=== PATIENT | male | born 1955 | race Hispanic/Latino ===

== ENCOUNTER 2024-05-26 15:59 | Emergency (ER) | payer BC, OTHER ==
[~2024-05-26] VITALS: Ht 172.7 cm; Wt 93.0 kg
[~2024-05-26 15:59] MED LIST: ACET-66 PO; FISH1CAP27 PO; GLUC-172 PO; MULT-950 PO
[2024-05-26 16:02] VITALS: TEMP 97.8
--- NOTE | 2024-05-26 16:09 | NUR ---
PT JUST NOW PLACED IN MY ED BED 18
[2024-05-26] MEDS: LIDOCAINE HCL 1% 20 ML VIAL INJ SCH (16:34)
[2024-05-26] MEDS: CLINDAMYCIN IVPB 600MG/50ML 50 ML IV SCH (16:34)
--- NOTE | 2024-05-26 16:50 | NUR ---
WOUND CULTURE: ONCE WOUND WAS CLEANSED W/SALINE, LEOLA TILLMAN OBTAINED A GOOD CULTURE WITH MANAGEMENT CONSULTING. IT WAS LABELED AND SENT TO LAB
--- NOTE | 2024-05-26 16:55 | NUR ---
ABSCESS I/D: R LATERAL CHEST WALL ABSCESS DRAINING UP PT ARRIVAL OF EARLY THIS AM. LEOLA TILLMAN USED LIDO 1% AND EXPLORED THE ABCESS. HE WAS ABLE TO REMOVE A LARGE ENCAPSULATION. PT HAD PREVIOUS EPISODES OF ABSCESS IN SAME SPOT AND IT HAD ONLY EVER BEEN CUT AND DRAINED-NEVER EXPLORED PER PT. LEOLA TILLMAN PACKED THE WOUND W/IODAFORM GAUZE, THEN XERFORM GAUZE PLACED OVER, THEN A FOLDED 4X4 AND TO COVER ALL A NON ADHERENT DRESSING W/POROUS TAPE ACROSS ALL OF THE DRESSING.
[2024-05-26] MEDS ORDERED: CLIN-141 PO (16:59)
--- NOTE | 2024-05-26 16:59 | ERN ---
General Chief Complaint: Abscess Stated Complaint: ABSCESS Time Seen by MD: 16:02 Time Seen by Midlevel: 16:02 Source: patient History of Present Illness Initial Comments Patient is a 69-year-old male with a past medical history of type 2 diabetes presenting to the emergency department with an abscess to the right lateral chest wall. Patient reports a similar episode several years ago where he had to have the abscess drained. Denies any other symptoms at this time. He specifically denies any fever, chills, chest pain, shortness for breath, or any other symptoms. Allergies: Coded Allergies: No Known Drug Allergies (Unverified Allergy, Unknown, 10/16/14) Home Meds Active Scripts Clindamycin HCl (Clindamycin HCl) 300 Mg Capsule, 1 CAP PO TID for 7 Days, #21 CAP 0 Refills Prov:LEOLA KHAN 05/26/24 Reported Medications Acetaminophen (Tylenol) 500 Mg Tab, 500 MG PO Q4H PRN for PAIN, TAB 10/16/14 Glucosamine/D3/Boswellia Cristal (Osteo Bi-Flex Caplet) 1 Each Tablet, 1 EACH PO AM, TAB 10/16/14 [place]-3 Fatty Acids/Fish Oil ([place] 3 1,000 mg Softgel) 1 Each Capsule, 1 EACH PO AM, CAP 10/16/14 Multivitamin (Multi-Day Vitamins) 1 Each Tablet, 1 EACH PO AM, TAB 10/16/14 Past Medical History Past Medical History: Diabetes-Type II, High Cholesterol, Hypertension Past Surgical History: Other Surgical History Other: HERNIA REPAIR AND LEG STENTS ROS Dictation CONSTITUTIONAL: Negative except for HPI HEAD/FACE: Negative except for HPI EENT: Negative except for HPI RESPIRATORY: Negative except for HPI GASTROINTESTINAL/ABDOMINAL: Negative except for HPI GENITOURINARY: Negative except for HPI MUSCULOSKELETAL: Negative except for HPI INTEGUMENTARY: Negative except for HPI NEUROLOGICAL/PSYCH: Negative except for HPI HEMATOLOGIC/LYMPHATIC: Negative except for HPI All Systems Negative, Except as noted above. 13 point review of systems assessed and all negative except for above. Physical Exam Physical Exam Dictation Vital Signs reviewed General Appearance: Alert, oriented x 3, no acute distress, well developed, nourished. Head and Face: non-traumatic. Eyes: PERRL, pink conjunctivas, eyelid no trauma, anterior chamber with arcus senilis. Ears: Pinnas intact and no signs of trauma or erythema ear canals clear and no discharge TM no erythema Nose: No discharge, no bleeding. Oropharynx: Mouth normal, tongue pink, pharynx clear,no erythema, tonsils no exudates, no abscesses noted, mucous membrane moist Neck: Supple, non-tender, no thyromegaly, no masses, no JVD, no bruits Breast:Deferred Chest:No tenderness, no crepitus, no paradoxical movement, no retractions Lungs:Clear, well-ventilated, symmetric, no rales, no wheezing, no rhonchi, no stridor, good breath sounds bilaterally Heart: Regular rate, regular rhythm, no murmur, no gallops Vascular: no peripheral edema, Abdomen: Soft, positive bowel sounds, nondistended, no guarding, nontender, no rebound, no masses no hepatomegaly, no splenomegaly, no Gutierrez's sign, no hernias. Rectal: Deferred Genital: Deferred Neurological: Normal speech, motor function intact, sensory function intact Musculoskeletal: Neck nontender, full range of motion, back nontender, full range of motion, Extremities: nontender, full range of motion Skin: There is a 2 x 2 cm circular abscess to the right lateral chest wall with surrounding erythema and induration consistent with an abscess Lymphatic: Deferred MDM MDM: Patient is a 69-year-old male with a past medical history of type 2 diabetes presenting to the emergency department with an abscess to the right lateral chest wall. Patient reports a similar episode several years ago where he had to have the abscess drained. Denies any other symptoms at this time. He specifically denies any fever, chills, chest pain, shortness for breath, or any other symptoms. On physical examination there is a 2 x 2 cm circular abscess to the right lateral chest wall with surrounding erythema and induration consistent with an abscess. The abscess is already draining. We obtained wound cultures. The abscess was explored and thoroughly cleansed. It appears the loculation was able to be removed completely. We then packed the abscess with iodoform packing. Patient was advised to return to the ER48 hours for removal of packing. Patient was started on clindamycin IV in the emergency department and will be discharged home with a prescription for p.o. clindamycin. Differential diagnosis: Abscess, cellulitis, wound evaluation There are no social concerns with this patient. Prescription drug management Prescriptions will include: Clindamycin Medical management and examination interpretation discussions were had by me with other qualified healthcare professionals as indicated for the patient's care. ED Course Orders Procedure Category Date Status Time Clindamycin Ivpb PHA 05/26/24 Complete 600mg/50ml (Cleocin 16:30 Lidocaine Hcl 1% 20ml PHA 05/26/24 Complete Vial (Lidocaine Hc 16:30 Anaerobic Culture ENRIQUETA 05/26/24 In Process 16:56 Aerobic Culture ENRIQUETA 05/26/24 In Process 16:56 Current Medications Medications (Trade) Dose Ordered Sig/Amy Route PRN Reason Start Time Stop Time Status Last Admin Dose Admin Clindamycin HCl/ Dextrose 50 ml @ 100 mls/hr Q8H IV 05/26/24 16:30 05/26/24 17:38 DC 05/26/24 16:34 Lidocaine HCl (Lidocaine HCl 1% 20ml Vial) ONCE INJ 05/26/24 16:30 05/26/24 17:38 DC 05/26/24 16:34 Vital Signs Date Time Temp Pulse Resp B/P (MAP) Pulse Ox O2 Delivery O2 Flow Rate FiO2 05/26/24 17:33 74 17 158/79 96 Room Air* 0 21 05/26/24 16:02 97.9 85 20 185/92 97 Room Air 0 Procedure Dictation Performed by: Leola Khan PA-C Authorized by:Patient Consent: Verbal consent obtained. Risks and benefits: Risks, benefits, and alternatives were discussed Consent given by: Patient Patient understanding: patient states understanding of the procedure being performed Patient consent: the patient's understanding of the procedure matches consent given Patient identity confirmed: arm band Time out: Immediately prior to procedure a "time out" was called to verify the correct patient, procedure, equipment, child support agent and site/side marked as required. Type: abscess Location details: Right lateral chest wall Anesthesia: local infiltration Local anesthetic: lidocaine 1% with epinephrine Anesthetic total: 15 ml Patient sedated: no Scalpel size: 11 Incision type: single straight Complexity: simple Drainage: purulent Drainage amount: moderate Wound treatment: packed Packing material: iodaform Patient tolerance: Patient tolerated the procedure well with no immediate complications. DX & DISP Disposition: Discharge Departure Impression: Primary Impression: Abscess of right axilla Condition: Stable Scripts Clindamycin HCl (Clindamycin HCl) 300 Mg Capsule 1 CAP PO TID for 7 Days, #21 CAP 0 Refills Prov: LEOLA KHAN 05/26/24 Additional Instructions: Your abscess was successfully drained in the emergency department. An iodine packing was placed and will need to be removed in 48 hours. You were given a loading dose of clindamycin antibiotic IV in the ER. I have provided you a prescription for outpatient antibiotics. If your wound does not improve over the next week you will need to return to the ER for further evaluation. If you develop worsening redness around your wound or high fevers at home please report to the ER for further evaluation. Referrals: IVONNE STEELE DO (PCP) I have reviewed the case, and I agree with, Diagnosis and Plan I performed the substantive portion of the visit. I have reviewed and personally made and approve the management plan that is documented in the note by myself or the VALENC[facility]. I acknowledge for responsibility for the patient's management plan. LEOLA KHAN May 26, 2024 16:59
[2024-05-26 17:33] VITALS: BP 158/79; PULSE 74; RESP 17; O2SAT 96
== END 2024-05-26 17:38 | disposition home or self-care (01) ==
LOC: EDH 15:59
DX: L02.411 Cutaneous abscess of right axilla (principal); E11.9 Type 2 diabetes mellitus without complications; E78.00 Pure hypercholesterolemia, unspecified; I10 Essential (primary) hypertension; Z98.890 Other specified postprocedural states
CPT/HCPCS: 99284; 96365; 10060; 87070; 87076; J3490

== ENCOUNTER 2024-05-28 07:28 | Emergency (ER) | payer OTHER ==
[~2024-05-28] VITALS: Ht 172.7 cm; Wt 93.0 kg
[~2024-05-28 07:28] MED LIST changes: +CLIN-141 PO
--- NOTE | 2024-05-28 08:04 | ERN ---
ED Note History of Present Illness Stated Complaint: RT FLANK ABSCESS Chief Complaint: Wound Check Time Seen by MD: 07:31 Dictation: This 69-year-old male with a history of diabetes, hypertension hyperlipidemia was here two days ago and had an abscess on the right lateral chest wall drained and packed. He was referred back to the emergency department for reassessment in two days. The patient has not had fever, severe local pain, shortness of breath, nausea vomiting or spreading redness either before or after the I&D. He is on clindamycin. He has a history of a similar abscess in the same location which was I&D'd earlier this year. He has not seen a surgeon. He has had previous stents of the lower extremity and hernia repair. He states he feels well and he is compliant with his medications. There is mild local pain. Patient is a former smoker. He does not drink use recreational drugs. He is here with his Allergies: Coded Allergies: No Known Drug Allergies (Unverified Allergy, Unknown, 10/16/14) Home Meds Active Scripts Clindamycin HCl (Clindamycin HCl) 300 Mg Capsule, 1 CAP PO TID for 7 Days, #21 CAP 0 Refills Prov:LEOLA FERGUSON 05/26/24 Reported Medications Acetaminophen (Tylenol) 500 Mg Tab, 500 MG PO Q4H PRN for PAIN, TAB 10/16/14 Glucosamine/D3/Boswellia Cristal (Osteo Bi-Flex Caplet) 1 Each Tablet, 1 EACH PO AM, TAB 10/16/14 [place]-3 Fatty Acids/Fish Oil ([place] 3 1,000 mg Softgel) 1 Each Capsule, 1 EACH PO AM, CAP 10/16/14 Multivitamin (Multi-Day Vitamins) 1 Each Tablet, 1 EACH PO AM, TAB 10/16/14 Past Medical History Past Medical History: Diabetes-Type II, High Cholesterol, Hypertension Surgical History: Other Surgical History Other: HERNIA REPAIR AND LEG STENTS Social History: Negative RN Note Reviewed/Agreed w/PFSH: Yes Review of System Dictation All pertinent systems reviewed, negative except as documented in the HPI The ROS is obtained from patient GENERAL/CONSTITUTIONAL: Negative except as documented in HPI. ENT: Negative except as documented in HPI. CARDIOVASCULAR: Negative except as documented in HPI. RESPIRATORY: Negative except as documented in HPI. GASTROINTESTINAL: Negative except as documented in HPI. GENITOURINARY: Negative except as documented in HPI. MUSCULOSKELETAL: Negative except as documented in HPI. SKIN: Negative except as documented in HPI. NEUROLOGIC: Negative except as documented in HPI. Initial Vital Sign VS Vital Signs Date Time Temp Pulse Resp B/P (MAP) Pulse Ox O2 Delivery O2 Flow Rate FiO2 05/28/24 07:30 97.9 70 18 156/86 97 Room Air 0 Physical Exam Dictation VITAL SIGNS: note is made of triage vital signs CONSTITUTIONAL: This is a comfortable patient who is awake, alert, and appropriately interactive. CHEST/AXILLA: Inspection shows an open wound with minimal erythema and swelling in the right anterior axillary line just above the level of the nipple. There is still a little bit of drainage. There is quite a bit of saturated packing. There was local tenderness No crepitus. RESPIRATORY: No respiratory distress. SKIN: Warm, dry, with normal turgor. Capillary refill less than 3 seconds. Normal color.No rash. Appears improved relative to the description from yesterday. NEURO: Awake and alert, lucid. Facies symmetric and speech is clear. Motor strength 5/5 in all extremities. Sensory grossly intact. PSYCH: Patient is appropriately attentive and cooperative without evidence of hallucination. ED Course ED Course Vital Signs Date Time Temp Pulse Resp B/P (MAP) Pulse Ox O2 Delivery O2 Flow Rate FiO2 05/28/24 07:30 97.9 70 18 156/86 97 Room Air 0 Medical Decision Making MDM INITIAL IMPRESSION Initial history and physical consistent with healing abscess. It is premature to remove all of the packing but I did reduce the volume of packing. Contributing medical problems: Diabetes I have reviewed the triage nursing notes and vital signs. The patient is afebrile with acceptable oxygen saturation, heart rate and blood pressure. Initial plan: We will be dressing the wound and discharging for follow up in two days with the PCP for packing removal DATA REVIEW Review of external data: I reviewed the chart from the and confirmed that he was taking his clindamycin DISPOSITION Final diagnostic impression: Healing abscess I discussed my findings, clinical impression and treatment recommendations with the patient and his I have reviewed the social factors contributing to the patient's presentation and disposition planning. My final plan for disposition was made based upon clinical findings, response to treatment and discussion with the patient regarding my recommendation . Hospitalization is not indicated due to low risk of short term progression, complication, morbidity or mortality related to the current diagnosis At the time of discharge, the vital signs are within acceptable limits. The discharge treatment plan includes continuing current care and follow up with the PCP in two days Incidental findings discussed: none Questions were invited and answered in layman's terms. I have emphasized my follow-up recommendations and reviewed ED return precautions. I have answered any questions in layman's terms. The patient understands that they will have to arrange for out-patient follow-up for recheck of today's condition. The patient is stable and appropriate for discharge from the ED. This dictation was prepared using [employer] voice recognition software. Occasional voice recognition errors may occur. When identified, these errors have been corrected. While every attempt is made to correct errors during dictation, errors may still exist. DX & DISP Disposition: Discharge Decision to Admit Date: May 28, 2024 Decision to Admit Time: 08:03 Departure Impression: Primary Impression: Abscess of right axilla Additional Impression: Encounter for wound re-check Condition: Stable Additional Instructions: Tylenol for pain. Complete the clindamycin as directed. Leave the dressing in place and avoid getting it wet for the next two days. Follow up at [facility] in two days for reassessment and removal of more packing. Return to the emergency department for fever, spreading redness, difficulty breathing or other worsening Referrals: IVONNE STEELE DO (PCP) Time of Disposition: 08:04 BLAYNE POLANCO MD May 28, 2024 08:04
[2024-05-28 08:28] VITALS: BP 148/79; PULSE 84; RESP 16; TEMP 97.8; O2SAT 98
== END 2024-05-28 08:31 | disposition home or self-care (01) ==
LOC: EDH 07:28
DX: L02.411 Cutaneous abscess of right axilla (principal); E11.9 Type 2 diabetes mellitus without complications; E78.00 Pure hypercholesterolemia, unspecified; I10 Essential (primary) hypertension; Z98.890 Other specified postprocedural states
CPT/HCPCS: 99282